=== PATIENT | male | born 1995 | race Caucasian/White ===

== ENCOUNTER 2016-09-24 12:26 | Emergency (ER) | payer OTHER ==
[~2016-09-24] VITALS: Ht 188 cm; Wt 83.9 kg
[2016-09-24] MEDS ORDERED: NORCO 5-325 TA1 EACH PO (13:04)
[2016-09-24 13:56] VITALS: BP 132/64
== END 2016-09-24 13:59 | disposition home or self-care (01) ==
LOC: ER 12:26
DX: S82.62XD Displaced fracture of lateral malleolus of left fibula, subsequent encounter for closed fracture with routine healing (principal); W22.8XXD Striking against or struck by other objects, subsequent encounter